=== PATIENT | male | born 1960 | race Caucasian/White ===

== ENCOUNTER 2016-11-03 07:31 | Day surgery (SDC) | payer BC, OTHER ==
[2016-11-02 08:39] LABS: HEMATOCRIT 45.4 % (40.0-51.0); HEMOGLOBIN 15.8 g/dL (13.6-17.8)
--- NOTE | ~2016-11-03 | OP ---
Record Of Operation [facility] [address] [place]. [address] NAME: ELIEL THOMAS : 64 STATUS : [facility]#: [id number] AGE: 56 ADM/REG DATE : 11/03/16 MR#: [id number] REPORT SERV DATE: 11/03/16 DICTATED BY: Sergio MEDINA DATE: 11/03/16 REPORT STATUS : Draft TRANSCRIBED BY: SHAKA DATE: 11/03/16 DATE OF PROCEDURE: 11/03/2016 PREOPERATIVE DIAGNOSES: 1. 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 2. Defect of the right ear, superior helix, extending on the posterior ear, secondary to excision of basal cell carcinoma with frozen sections. POSTOPERATIVE DIAGNOSES: 1. 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 2. Defect of the right ear, superior helix, extending on the posterior ear, secondary to excision of basal cell carcinoma with frozen sections. NAME OF OPERATION: 1. Surgical excisional preparation of right ear defect. 2. Harvesting of full-thickness skin graft from left posterior ear. 3. Intermediate closure of left ear full-thickness skin graft donor site. 4. Full-thickness skin graft reconstruction of right ear defect. FINDINGS: 2.0 cm tall x 2.5 cm wide defect of the right ear, superior helix, extending onto the posterior surface of the ear. INDICATIONS: This gentleman was referred to me with a defect in his ear following removal of a basal cell carcinoma with frozen sections that required multiple frozen sections to obtain free margins. He was referred and seen in the office and we discussed the pros and cons, alternatives, benefits, risks, limitations, and complications associated with reconstruction. He has a small area of exposed cartilage (with loss of the perichondrium), but the majority of this has perichondrium present. We discussed the risk of skin graft failure, infection, reoperation for secondary reconstruction, debridement of wound, imponderables. No guarantees expressed. He wishes to proceed. Proper consent was obtained. DESCRIPTION OF PROCEDURE: He was taken into the operating room and given general oral endotracheal anesthesia in supine position. Both ears, and the entire face, and neck, and periauricular scalp were prepped with Hibiclens and saline, followed by isopropyl alcohol. (Preoperatively, I discussed with him that we would take the graft from the opposite left postauricular ear so that, if we had recurrence, or failure, or need for secondary surgery, we would not jeopardize any pedicle flaps, or remove any laxity of the postauricular skin that might be needed for secondary reconstruction on the right ear). Sterile drapes were applied. The dressing on his ear had been removed prior to the prep. The defect measured 2 cm tall x 2.5 cm wide. A template was made of the defect and the template was transferred to the left ear postauricular surface in the postauricular crease. A fusiform ellipse was marked out around this. Both the left ear and the right ear were Record Of Operation [address] [place]. [address] NAME: ELIEL THOMAS : 64 STATUS : [facility] PAT#: [id number] AGE: 56 ADM/REG DATE : 11/03/16 MR#: [id number] REPORT SERV DATE: 11/03/16 DICTATED BY: Sergio MEDINA DATE: 11/03/16 REPORT STATUS : Draft TRANSCRIBED BY: SHAKA DATE: 11/03/16 injected with 1% Xylocaine with 1:100,000 epinephrine and 0.5% Marcaine with 1:200,000 epinephrine. First the right ear was surgically excisionally prepared with a #15C blade, excising preauricular margins. Elevation for approximately 3 mm at the edge of the helical rim was performed with a #15C blade to facilitate closure and suturing of the full-thickness graft that would be obtained. The full-thickness skin graft was obtained from the left postauricular area, according to the markings with a #15 blade and scissors. Hemostasis was obtained with electrocautery. The skin graft was placed in saline. After hemostasis was obtained with electrocautery, the wound was closed in layers with 4-0 Monocryl deep and Dermabond on the skin. The full-thickness skin graft was then defatted and thinned appropriately. The graft was then incrementally sutured in place and incrementally trimmed and sutured. It was more tightly sutured along the anterior helical rim and looser on the posterior surface of the ear to allow any bleeding to come out from beneath the graft. Bleeding was nil at the recipient site of the right ear. A quilting suture of 6-0 Prolene was used through-and- through to quilt the graft to the ear. The graft and ear were cleansed with hydrogen peroxide and dried. A dressing of Telfa was then placed and secured with multiple layers of micropore tape after Mastisol had been first applied. Also a piece of Telfa was placed behind the left ear and taped with white tape prior to leaving the operating room. He was then awakened, extubated, and taken recovery room in good condition having tolerated the procedure well. Home-going instructions, he was already taking cephalexin. Prescriptions written for hydrocodone and Zofran. He will recheck in the office in 17 days. In three days, he can remove the white dressing on the left ear, but he is to leave the tape dry and intact on the right ear still seen in 17 days. He is to avoid lying on the right ear. Left ear, lying is optional, but preferably on his back. IVORY/RAPHAELL Sergio Medina M.D. / [id number] CC: June Dubose M.D.
[~2016-11-03 07:31] MED LIST: ACET500CAP PO; LEXAPRO10 PO
== END 2016-11-03 13:53 | disposition home or self-care (01) ==
LOC: SDC 07:31
PROVIDERS: Specialist
PROC: 0HQ2XZZ Repair Right Ear Skin, External Approach (ICD-10-PCS; 2016-11-03)
PROC: 09B0XZZ Excision of Right External Ear, External Approach (ICD-10-PCS; 2016-11-03)
PROC: 0HR2X73 Replacement of Right Ear Skin with Autologous Tissue Substitute, Full Thickness, External Approach (ICD-10-PCS; principal; 2016-11-03 08:45)
DX: C44.212 Basal cell carcinoma of skin of right ear and external auricular canal (principal); K21.9 Gastro-esophageal reflux disease without esophagitis; Z90.49 Acquired absence of other specified parts of digestive tract; F32.9 Major depressive disorder, single episode, unspecified
CPT/HCPCS: 85014; 85018; 93005; A9270-GY; J0690; J2250; J2405; J2710; J3010